=== PATIENT | female | born 1970 | race Two or more races ===

== ENCOUNTER 2020-07-02 10:38 | Outpatient (CLI) | payer OTHER | END 2020-07-02 10:43 | disposition home or self-care (01) | LOC: SONOGRAMA 10:38 | PROVIDERS: ATTEND Pathology Anatomic Pathology & Clinical Pathology | DX: E04.2 Nontoxic multinodular goiter (principal); E06.0 Acute thyroiditis ==

== ENCOUNTER 2021-09-01 05:38 | Day surgery (SDC) | payer OTHER ==
[2021-09-01] MEDS ORDERED: PERCOCET 5-3251 EACH PO (09:03)
== END 2021-09-01 11:35 | disposition home or self-care (01) ==
LOC: CIR.AMB 05:38
PROVIDERS: ATTEND Surgery
DX: E21.0 Primary hyperparathyroidism (principal); E04.2 Nontoxic multinodular goiter

== ENCOUNTER 2025-07-21 13:54 | Outpatient (CLI) | payer OTHER ==
[~2025-07-21 13:54] MED LIST: PERCOCET 5-3251 EACH PO
== END 2025-07-21 13:57 | disposition home or self-care (01) ==
LOC: SONOGRAMA 13:54
PROVIDERS: ATTEND Pathology Anatomic Pathology & Clinical Pathology
DX: D34 Benign neoplasm of thyroid gland (principal); E07.89 Other specified disorders of thyroid; C73 Malignant neoplasm of thyroid gland